=== PATIENT | female | born 1930 | race Caucasian/White ===

== ENCOUNTER 2018-05-26 08:34 | Inpatient (IN) | payer MEDICARE, OTHER ==
[~2018-05-26] VITALS: Ht 162.6 cm; Wt 67.6 kg
[~2018-05-26 08:34] MED LIST: ACET325T14 PO; AMLO5TAB4 PO; ATOR40TA78 PO; DILT120C9 PO; DOCU-131 PO; FLUC100T PO; OMEP-110 PO; TRAZ-136 PO
[2018-05-26] MEDS ORDERED: SODIUM CHLORIDE FLUSH 10ML SYR IVF ONE (09:00)
[2018-05-26] MEDS ORDERED: ALBUTEROL/IPRATROPIUM 2.5MG/0.5MG, 3 ML NPPB ONE (09:00)
[2018-05-26] MEDS ORDERED: SODIUM CHLORIDE 0.9% 1,000ML IVBOLUS ONE (09:00)
[2018-05-26] MEDS ORDERED: ALBUTEROL/IPRATROPIUM 2.5MG/0.5MG, 3 ML ONE (09:06)
[2018-05-26 09:45] LABS: RAPID INFLUENZA A Negative (Negative); RAPID INFLUENZA B Negative (Negative)
[2018-05-26 09:48] LABS: BASOPHILS # (AUTO) 0.02 x10^3/uL (0-0.1); BASOPHILS % (AUTO) 0 % (0-1); EOSINOPHILS # (AUTO) 0.09 x10^3/uL (0-0.4); EOSINOPHILS % (AUTO) 2 % (1-7); LYMPHOCYTES # (AUTO) 0.88 x10^3/uL (1-3.4); LYMPHOCYTES % (AUTO) 15 % (22-44); MD NO; MEAN CORPUSCULAR HEMOGLOBIN 33.3 pg (27.0-34.8); MEAN CORPUSCULAR HGB CONC 36.2 g/dL (32.4-35.8); MONOCYTES # (AUTO) 0.42 x10^3/uL (0.2-0.8); MONOCYTES % (AUTO) 7 % (2-9); NEUTROPHILS # (AUTO) 4.67 x10^3/uL (1.8-6.8); NEUTROPHILS % (AUTO) 77 % (42-75); PLATELET COUNT 143 x10^3/uL (130-400); RED BLOOD COUNT 3.23 x10^6/uL (3.82-5.3); RED CELL DISTRIBUTION WIDTH 20.1 % (9.6-15.2)
[2018-05-26] MEDS ORDERED: ASPIRIN (09:49)
[2018-05-26 09:55] LABS: ALBUMIN 3.1 g/dL (3.4-5.0); ANION GAP 8 mmol/L (5-15); CALCIUM 9.4 mg/dL (8.5-10.1); CHLORIDE 111 mmol/L (98-107)
[2018-05-26 10:01] LABS: ALANINE AMINOTRANSFERASE 29 U/L (12-78); ALKALINE PHOSPHATASE 199 U/L (45-117); BILIRUBIN,TOTAL 0.5 mg/dL (0.2-1.0); CREATININE 1.43 mg/dL (0.55-1.02); TROPONIN I 0.035 ng/mL (0.000-0.045)
[2018-05-26] MEDS ORDERED: FUROSEMIDE 20 MG/2 ML IV ONE ×2 (10:30→11:30)
[2018-05-26] MEDS ORDERED: ALBUTEROL SULFATE 2.5 MG/3 ML NPPB ONE (10:30)
[2018-05-26] MEDS ORDERED: FUROSEMIDE 20 MG/2 ML ONE ×2 (10:31→11:36)
[2018-05-26 10:40] LABS: MICROSCOPIC AUTO
[2018-05-26] MEDS ORDERED: ALBUTEROL SULFATE 2.5 MG/3 ML ONE (10:41)
[2018-05-26 10:42] LABS: CULTURE INDICATED? YES
[2018-05-26] MEDS ORDERED: SODIUM CHLORIDE FLUSH 10ML SYR IVF PRN (12:30)
[2018-05-26 12:57] VITALS: BP 143/84
[2018-05-26] MEDS ORDERED: MAGNESIUM HYDROXIDE 8%, 30ML UDC PO PRN (16:00)
[2018-05-26] MEDS ORDERED: ONDANSETRON 2MG/ML, 2ML IV PRN (16:00)
[2018-05-26] MEDS ORDERED: ZOLPIDEM 5MG TABLET PO PRN (16:00)
[2018-05-26] MEDS ORDERED: TRAZODONE 50MG TABLET PO PRN (16:00)
[2018-05-26] MEDS ORDERED: ENOXAPARIN 40 MG/0.4 ML SQ SCH ×2 (16:30→17:30)
[2018-05-26] MEDS ORDERED: ALBUTEROL/IPRATROPIUM 2.5MG/0.5MG, 3 ML NPPB PRN (17:00)
[2018-05-26] MEDS: CARVEDILOL 6.25 MG TABLET PO SCH (17:48)
[2018-05-26] MEDS: ALBUTEROL/IPRATROPIUM 2.5MG/0.5MG, 3 ML NPPB SCH (18:54)
[2018-05-26 19:00] VITALS: BP 111/66
[2018-05-26] MEDS: FUROSEMIDE 40 MG/4 ML IVPush SCH (20:39)
[2018-05-27 01:46] VITALS: BP 114/70
[2018-05-27] MEDS: CARVEDILOL 6.25 MG TABLET PO SCH (05:20)
[2018-05-27 05:42] LABS: ALANINE AMINOTRANSFERASE 25 U/L (12-78); ALBUMIN 2.8 g/dL (3.4-5.0); ANION GAP 8 mmol/L (5-15); CALCIUM 8.5 mg/dL (8.5-10.1); CHLORIDE 111 mmol/L (98-107); CREATININE 1.71 mg/dL (0.55-1.02)
[2018-05-27 05:47] LABS: ALKALINE PHOSPHATASE 154 U/L (45-117); BILIRUBIN,TOTAL 0.3 mg/dL (0.2-1.0); TOTAL PROTEIN 7.1 g/dL (6.4-8.2)
[2018-05-27 07:12] VITALS: BP 109/67
[2018-05-27] MEDS: ALBUTEROL/IPRATROPIUM 2.5MG/0.5MG, 3 ML NPPB SCH ×4 (08:05→20:10)
[2018-05-27] MEDS: SPIRONOLACTONE 25 MG TABLET PO SCH (08:52)
[2018-05-27] MEDS: FUROSEMIDE 40 MG/4 ML IVPush SCH (08:52)
[2018-05-27] MEDS: LOSARTAN 50MG TABLET PO SCH (08:53)
[2018-05-27] MEDS: DOCUSATE 100 MG CAPSULE PO SCH (08:53)
[2018-05-27 12:29] VITALS: BP 114/67
[2018-05-27 17:00] VITALS: BP 107/67
[2018-05-27] MEDS: ENOXAPARIN 30 MG/0.3 ML SQ SCH (17:06)
[2018-05-27] MEDS: CARVEDILOL 12.5 MG TABLET PO SCH (17:07)
[2018-05-27 19:00] VITALS: BP 96/58
[2018-05-28] VITALS (7 sets, daily range): BP systolic 95–123; BP diastolic 57–78
[2018-05-28] MEDS: CARVEDILOL 12.5 MG TABLET PO SCH ×2 (05:17→17:29)
[2018-05-28 05:33] LABS: ALBUMIN 2.5 g/dL (3.4-5.0); ANION GAP 8 mmol/L (5-15); CALCIUM 8.4 mg/dL (8.5-10.1); CHLORIDE 109 mmol/L (98-107); CREATININE 1.91 mg/dL (0.55-1.02)
[2018-05-28] MEDS: ALBUTEROL/IPRATROPIUM 2.5MG/0.5MG, 3 ML NPPB SCH ×4 (07:20→19:11)
[2018-05-28] MEDS: DOCUSATE 100 MG CAPSULE PO SCH (09:14)
[2018-05-28] MEDS: SPIRONOLACTONE 25 MG TABLET PO SCH (09:15)
[2018-05-28] MEDS: LOSARTAN 50MG TABLET PO SCH (09:15)
[2018-05-28] MEDS: FUROSEMIDE 20 MG TABLET PO SCH (09:15)
[2018-05-28] MEDS: CIPROFLOXACIN 250 MG TABLET PO SCH ×2 (16:17→21:38)
[2018-05-28] MEDS: ENOXAPARIN 30 MG/0.3 ML SQ SCH (17:29)
[2018-05-28] MEDS ORDERED: CIPROFLOXACIN 250 MG TABLET PO SCH (21:00)
[2018-05-29 02:00] VITALS: BP 114/71
[2018-05-29 05:41] LABS: CHLORIDE 107 mmol/L (98-107)
[2018-05-29 05:51] LABS: ANION GAP 7 mmol/L (5-15); CALCIUM 8.8 mg/dL (8.5-10.1); CREATININE 1.79 mg/dL (0.55-1.02)
[2018-05-29] MEDS: CARVEDILOL 12.5 MG TABLET PO SCH ×2 (06:21→18:02)
[2018-05-29] MEDS: ALBUTEROL/IPRATROPIUM 2.5MG/0.5MG, 3 ML NPPB SCH ×4 (07:37→19:53)
[2018-05-29 08:56] VITALS: BP 88/53
[2018-05-29] MEDS: LOSARTAN 25MG TABLET PO SCH (09:00)
[2018-05-29] MEDS: DOCUSATE 100 MG CAPSULE PO SCH (09:18)
[2018-05-29] MEDS: FUROSEMIDE 20 MG TABLET PO SCH (09:18)
[2018-05-29] MEDS: SPIRONOLACTONE 25 MG TABLET PO SCH (09:18)
[2018-05-29] MEDS: CIPROFLOXACIN 250 MG TABLET PO SCH ×2 (09:18→21:16)
[2018-05-29 13:40] VITALS: BP 100/62
[2018-05-29 17:42] VITALS: BP 97/61
[2018-05-29] MEDS: ENOXAPARIN 30 MG/0.3 ML SQ SCH (18:03)
[2018-05-29 19:26] VITALS: BP 103/60
[2018-05-30 01:40] VITALS: BP 107/63
[2018-05-30] MEDS: CARVEDILOL 12.5 MG TABLET PO SCH ×2 (05:48→17:26)
[2018-05-30 07:12] VITALS: BP 113/69
[2018-05-30] MEDS: CIPROFLOXACIN 250 MG TABLET PO SCH ×2 (09:42→21:37)
[2018-05-30] MEDS: DOCUSATE 100 MG CAPSULE PO SCH (09:42)
[2018-05-30] MEDS: SPIRONOLACTONE 25 MG TABLET PO SCH (09:42)
[2018-05-30] MEDS: LOSARTAN 25MG TABLET PO SCH (09:42)
[2018-05-30] MEDS: HYDROCHLOROTHIAZIDE 25 MG TABLET PO SCH (09:42)
[2018-05-30 14:21] VITALS: BP 105/63
[2018-05-30] MEDS: ENOXAPARIN 30 MG/0.3 ML SQ SCH (17:26)
[2018-05-30 19:01] VITALS: BP 97/65
[2018-05-31 02:00] VITALS: BP 114/68
[2018-05-31] MEDS: CARVEDILOL 12.5 MG TABLET PO SCH (06:12)
[2018-05-31 08:27] VITALS: BP 92/59
[2018-05-31] MEDS: DOCUSATE 100 MG CAPSULE PO SCH (09:00)
[2018-05-31] MEDS: LOSARTAN 25MG TABLET PO SCH (09:10)
[2018-05-31] MEDS: SPIRONOLACTONE 25 MG TABLET PO SCH (09:10)
[2018-05-31] MEDS: HYDROCHLOROTHIAZIDE 25 MG TABLET PO SCH (09:11)
[2018-05-31] MEDS: CIPROFLOXACIN 250 MG TABLET PO SCH (09:11)
[2018-05-31] MEDS ORDERED: HYDR25TA6 PO (10:15)
[2018-05-31] MEDS ORDERED: CARV12.543 PO (10:15)
[2018-05-31] MEDS ORDERED: CIPR250T27 PO (10:15)
[2018-06-01] MEDS ORDERED: HYDROCHLOROTHIAZIDE 25 MG TABLET PO SCH (09:00)
== END 2018-05-31 11:25 | disposition home or self-care (01) | DRG 291 ==
LOC: ED 09:13 → EDIP 11:37 → 4EST 12:37 → 4WST 05-28 01:10
PROVIDERS: ADMIT Internal Medicine; ATTEND Internal Medicine
DX: I13.0 Hypertensive heart and chronic kidney disease with heart failure and stage 1 through stage 4 chronic kidney disease, or unspecified chronic kidney disease (principal); I50.23 Acute on chronic systolic (congestive) heart failure; J44.1 Chronic obstructive pulmonary disease with (acute) exacerbation; N18.4 Chronic kidney disease, stage 4 (severe); I48.92 Unspecified atrial flutter; N39.0 Urinary tract infection, site not specified; I48.0 Paroxysmal atrial fibrillation; F03.90 Unspecified dementia, unspecified severity, without behavioral disturbance, psychotic disturbance, mood disturbance, and anxiety; I08.0 Rheumatic disorders of both mitral and aortic valves; I48.2 Chronic atrial fibrillation; B96.5 Pseudomonas (aeruginosa) (mallei) (pseudomallei) as the cause of diseases classified elsewhere; Z85.528 Personal history of other malignant neoplasm of kidney; Z86.73 Personal history of transient ischemic attack (TIA), and cerebral infarction without residual deficits; Z90.5 Acquired absence of kidney; Z87.891 Personal history of nicotine dependence; Z95.0 Presence of cardiac pacemaker; Z99.81 Dependence on supplemental oxygen; Z79.899 Other long term (current) drug therapy; I27.29 Other secondary pulmonary hypertension
CPT/HCPCS: 36415; 71045; 80048; 80053; 80069; 81001; 83605; 83880; 84484; 85025; 87040; 87077; 87086; 87186; 87400; 93005; 93306; 94640; 96361; 96374; 96376; 99285; G0378; J1650; J1940; J7613; J7620; J7030; J7512

== ENCOUNTER 2018-05-31 16:46 | Emergency (ER) | payer MEDICARE, OTHER ==
[~2018-05-31] VITALS: Ht 162.6 cm; Wt 48.0 kg
[~2018-05-31 16:46] MED LIST changes: +ASPIRIN; +CARV12.543 PO; +CIPR250T27 PO; +HYDR25TA6 PO
[2018-05-31 17:52] LABS: BASOPHILS % (AUTO) 0 % (0-1); EOSINOPHILS # (AUTO) 0.18 x10^3/uL (0-0.4); EOSINOPHILS % (AUTO) 3 % (1-7); LYMPHOCYTES # (AUTO) 0.44 x10^3/uL (1-3.4); LYMPHOCYTES % (AUTO) 7 % (22-44); MEAN CORPUSCULAR HEMOGLOBIN 26.5 pg (27.0-34.8); MEAN CORPUSCULAR HGB CONC 32.5 g/dL (32.4-35.8); MEAN CORPUSCULAR VOLUME 81.7 fL (80-100); MEAN PLATELET VOLUME 9.3 fL (7.4-10.4); MONOCYTES # (AUTO) 0.64 x10^3/uL (0.2-0.8); MONOCYTES % (AUTO) 10 % (2-9); NEUTROPHILS # (AUTO) 5.31 x10^3/uL (1.8-6.8); NEUTROPHILS % (AUTO) 81 % (42-75); PLATELET COUNT 119 x10^3/uL (130-400); RED BLOOD COUNT 3.74 x10^6/uL (3.82-5.3); RED CELL DISTRIBUTION WIDTH 19.5 % (9.6-15.2)
[2018-05-31 17:57] LABS: ALBUMIN 2.6 g/dL (3.4-5.0); ANION GAP 6 mmol/L (5-15); CALCIUM 8.1 mg/dL (8.5-10.1); CHLORIDE 104 mmol/L (98-107)
[2018-05-31 18:02] LABS: ALANINE AMINOTRANSFERASE 23 U/L (12-78); ALKALINE PHOSPHATASE 173 U/L (45-117); BILIRUBIN,TOTAL 0.3 mg/dL (0.2-1.0); CREATININE 1.77 mg/dL (0.55-1.02); TROPONIN I 0.029 ng/mL (0.000-0.045)
[2018-05-31 18:21] LABS: MD SCAN
[2018-05-31 18:58] LABS: MICROSCOPIC INDICATED
[2018-05-31] MEDS ORDERED: FUROSEMIDE 40 MG/4 ML IV ONE (19:30)
[2018-05-31 19:32] LABS: CULTURE INDICATED? NO
[2018-05-31] MEDS ORDERED: FUROSEMIDE 40 MG/4 ML ONE (19:52)
[2018-05-31 22:43] VITALS: BP 121/70
== END 2018-05-31 22:57 | disposition home or self-care (01) ==
LOC: ED 19:33
DX: R53.1 Weakness (principal); R09.02 Hypoxemia; J44.9 Chronic obstructive pulmonary disease, unspecified; I50.9 Heart failure, unspecified
CPT/HCPCS: 36415; 71045; 80053; 81001; 83880; 84484; 85025; 93005; 96374; 99285; J1940

== ENCOUNTER 2018-07-31 05:56 | Observation (INO) | payer MEDICARE, OTHER ==
[~2018-07-31] VITALS: Ht 165.1 cm; Wt 49.8 kg
[~2018-07-31 05:56] MED LIST changes: -TRAZ-136 PO; +TRAZ50TA66 PO
[2018-07-31] MEDS ORDERED: OXYcodone/APAP 5/325MG TABLET ONE (06:51)
[2018-07-31] MEDS ORDERED: ONDANSETRON ODT 4 MG ONE (06:51)
[2018-07-31] MEDS ORDERED: OXYcodone/APAP 5/325MG TABLET PO ONE (07:00)
[2018-07-31] MEDS ORDERED: ONDANSETRON ODT 4 MG PO ONE (07:00)
[2018-07-31 09:17] LABS: MEAN CORPUSCULAR HEMOGLOBIN 25.9 pg (27.0-34.8); MEAN CORPUSCULAR HGB CONC 31.7 g/dL (32.4-35.8); MEAN CORPUSCULAR VOLUME 81.7 fL (80-100); MEAN PLATELET VOLUME 9.1 fL (7.4-10.4); PLATELET COUNT 119 x10^3/uL (130-400); RED BLOOD COUNT 3.84 x10^6/uL (3.82-5.3); RED CELL DISTRIBUTION WIDTH 23.5 % (9.6-15.2)
[2018-07-31 09:23] LABS: ALBUMIN 3.2 g/dL (3.4-5.0); ANION GAP 8 mmol/L (5-15); CALCIUM 8.7 mg/dL (8.5-10.1); CHLORIDE 111 mmol/L (98-107); CREATININE 1.91 mg/dL (0.55-1.02)
[2018-07-31 09:34] LABS: BASOPHILS # (AUTO) 0.02 x10^3/uL (0-0.1); BASOPHILS % (AUTO) 0 % (0-1); EOSINOPHILS # (AUTO) 0.07 x10^3/uL (0-0.4); EOSINOPHILS % (AUTO) 1 % (1-7); LYMPHOCYTES # (AUTO) 0.66 x10^3/uL (1-3.4); LYMPHOCYTES % (AUTO) 11 % (22-44); MD SCAN; MONOCYTES # (AUTO) 0.43 x10^3/uL (0.2-0.8); MONOCYTES % (AUTO) 7 % (2-9); NEUTROPHILS # (AUTO) 4.81 x10^3/uL (1.8-6.8); NEUTROPHILS % (AUTO) 80 % (42-75)
[2018-07-31] MEDS ORDERED: SODIUM CHLORIDE FLUSH 10ML SYR IVF PRN (10:00)
[2018-07-31] MEDS ORDERED: ONDANSETRON 2MG/ML, 2ML IVPush PRN (10:00)
[2018-07-31] MEDS ORDERED: MORPHINE SULFATE 4 MG/ML, 1ML IVPush PRN (10:00)
[2018-07-31] MEDS ORDERED: SODIUM CHLORIDE 0.9% 1,000 ML IV ONE (10:00)
[2018-07-31 11:21] VITALS: BP 92/60
[2018-07-31] MEDS ORDERED: DOCUSATE 100 MG CAPSULE PO PRN (13:00)
[2018-07-31] MEDS ORDERED: ACETAMINOPHEN 325 MG TABLET PO PRN (13:00)
[2018-07-31 13:16] VITALS: BP 93/59
[2018-07-31 18:33] VITALS: BP 79/60
[2018-07-31 19:20] LABS: CULTURE INDICATED? YES; MICROSCOPIC AUTO
[2018-07-31 19:55] VITALS: BP 102/63
[2018-07-31] MEDS: CARVEDILOL 12.5 MG TABLET PO SCH (21:55)
[2018-08-01 00:26] VITALS: BP 103/63
[2018-08-01] MEDS: CARVEDILOL 12.5 MG TABLET PO SCH (06:33)
[2018-08-01] MEDS ORDERED: SULFAMETH./TRIMETHOPRIM DS 800MG/160MG TABLET PO SCH (09:00)
[2018-08-01 09:33] VITALS: BP 92/60
[2018-08-01] MEDS ORDERED: SULF-169 PO (12:56)
== END 2018-08-01 14:20 | disposition home or self-care (01) ==
LOC: ED 09:38 → INTOOBSV 10:00 → EDIP 10:00 → 3NE 11:46 → DCLOUNGE 08-01 14:14
PROVIDERS: ADMIT Internal Medicine; ATTEND Internal Medicine
DX: S32.010A Wedge compression fracture of first lumbar vertebra, initial encounter for closed fracture (principal); S22.060A Wedge compression fracture of T7-T8 vertebra, initial encounter for closed fracture; S22.070A Wedge compression fracture of T9-T10 vertebra, initial encounter for closed fracture; S32.020A Wedge compression fracture of second lumbar vertebra, initial encounter for closed fracture; S32.050A Wedge compression fracture of fifth lumbar vertebra, initial encounter for closed fracture; I48.0 Paroxysmal atrial fibrillation; I13.0 Hypertensive heart and chronic kidney disease with heart failure and stage 1 through stage 4 chronic kidney disease, or unspecified chronic kidney disease; E78.5 Hyperlipidemia, unspecified; H91.90 Unspecified hearing loss, unspecified ear; I50.9 Heart failure, unspecified; N39.0 Urinary tract infection, site not specified; J44.9 Chronic obstructive pulmonary disease, unspecified; N18.4 Chronic kidney disease, stage 4 (severe); W07.XXXA Fall from chair, initial encounter; X58.XXXA Exposure to other specified factors, initial encounter; Y93.89 Activity, other specified; Y92.89 Other specified places as the place of occurrence of the external cause; Y99.8 Other external cause status; Z82.3 Family history of stroke; Z82.49 Family history of ischemic heart disease and other diseases of the circulatory system; Z86.73 Personal history of transient ischemic attack (TIA), and cerebral infarction without residual deficits; Z95.0 Presence of cardiac pacemaker
CPT/HCPCS: 36415; 72110; 72128; 72131; 72220; 80048; 81001; 82040; 85025; 87077; 87086; 87186; 99284; G0378; Q0162

== ENCOUNTER 2018-08-01 14:36 | Inpatient (IN) | payer MEDICARE, OTHER ==
[~2018-08-01] VITALS: Ht 162.6 cm; Wt 48.8 kg
[~2018-08-01 14:36] MED LIST changes: +SULF-169 PO
[2018-08-01] MEDS ORDERED: NALOXONE 0.4 MG/ML, 1ML ONE (14:41)
[2018-08-01] MEDS ORDERED: ONDANSETRON 2MG/ML, 2ML ONE (14:47)
[2018-08-01 15:22] LABS: ALBUMIN 3.2 g/dL (3.4-5.0); ANION GAP 10 mmol/L (5-15); CALCIUM 8.8 mg/dL (8.5-10.1); CHLORIDE 106 mmol/L (98-107)
[2018-08-01] MEDS ORDERED: CEFTRIAXONE PMX 1GM/50ML 50 ML ONE (15:23)
[2018-08-01 15:25] LABS: MEAN CORPUSCULAR HEMOGLOBIN 27.5 pg (27.0-34.8); MEAN CORPUSCULAR HGB CONC 32.5 g/dL (32.4-35.8); MEAN CORPUSCULAR VOLUME 84.8 fL (80-100); MEAN PLATELET VOLUME 9.4 fL (7.4-10.4); PLATELET COUNT 122 x10^3/uL (130-400); RED BLOOD COUNT 4.15 x10^6/uL (3.82-5.3); RED CELL DISTRIBUTION WIDTH 23.9 % (9.6-15.2)
[2018-08-01 15:28] LABS: ALANINE AMINOTRANSFERASE 30 U/L (12-78); ALKALINE PHOSPHATASE 143 U/L (45-117); BILIRUBIN,TOTAL 0.4 mg/dL (0.2-1.0); CREATININE 2.39 mg/dL (0.55-1.02); TOTAL PROTEIN 7.4 g/dL (6.4-8.2); TROPONIN I 0.035 ng/mL (0.000-0.045)
[2018-08-01] MEDS ORDERED: SODIUM CHLORIDE 0.9%, 500ML IVBOLUS ONE (15:30)
[2018-08-01] MEDS ORDERED: CEFTRIAXONE PMX 1GM/50ML 50 ML IV ONE (15:30)
[2018-08-01] MEDS ORDERED: NALOXONE 0.4 MG/ML, 1ML IVPush ONE (15:30)
[2018-08-01] MEDS ORDERED: ONDANSETRON 2MG/ML, 2ML IVPush ONE (15:30)
[2018-08-01 15:47] LABS: INTERNATIONAL NORMALIZED RATIO 1.02 (0.93-1.1); PROTHROMBIN TIME 10.8 Seconds (9.6-11.5)
[2018-08-01 16:02] LABS: BASOPHILS % (AUTO) 0 % (0-1); EOSINOPHILS # (AUTO) 0.05 x10^3/uL (0-0.4); EOSINOPHILS % (AUTO) 1 % (1-7); LYMPHOCYTES # (AUTO) 0.21 x10^3/uL (1-3.4); LYMPHOCYTES % (AUTO) 5 % (22-44); MD SCAN; MONOCYTES # (AUTO) 0.01 x10^3/uL (0.2-0.8); MONOCYTES % (AUTO) 0 % (2-9); NEUTROPHILS # (AUTO) 4.47 x10^3/uL (1.8-6.8); NEUTROPHILS % (AUTO) 94 % (42-75)
[2018-08-01] MEDS ORDERED: ACETAMINOPHEN 325 MG TABLET PO PRN (17:00)
[2018-08-01 18:18] VITALS: BP 99/65
[2018-08-01] MEDS: D5%-0.45% NACL 1,000 ML IV SCH (18:37)
[2018-08-01 19:35] VITALS: BP 96/62
[2018-08-01] MEDS: SULFAMETH./TRIMETHOPRIM DS 800MG/160MG TABLET PO SCH (22:49)
[2018-08-02 01:54] VITALS: BP 106/70
[2018-08-02] MEDS: D5%-0.45% NACL 1,000 ML IV SCH ×2 (05:10→19:28)
[2018-08-02] MEDS: SULFAMETH./TRIMETHOPRIM DS 800MG/160MG TABLET PO SCH ×2 (08:19→21:12)
[2018-08-02 08:35] VITALS: BP 106/72
[2018-08-02 15:49] VITALS: BP 103/70
[2018-08-02 20:58] VITALS: BP 91/57
[2018-08-03 00:03] VITALS: BP 91/55
[2018-08-03 07:56] VITALS: BP 97/59
[2018-08-03] MEDS: D5%-0.45% NACL 1,000 ML IV SCH ×2 (09:10→22:07)
[2018-08-03] MEDS: SULFAMETH./TRIMETHOPRIM DS 800MG/160MG TABLET PO SCH ×2 (09:10→20:26)
[2018-08-03 13:17] VITALS: BP 98/60
[2018-08-03 19:18] VITALS: BP 100/64
[2018-08-04 02:02] VITALS: BP 97/66
[2018-08-04 07:29] VITALS: BP 105/67
[2018-08-04] MEDS: SULFAMETH./TRIMETHOPRIM DS 800MG/160MG TABLET PO SCH ×2 (09:18→22:04)
[2018-08-04] MEDS: D5%-0.45% NACL 1,000 ML IV SCH (11:45)
[2018-08-04 12:57] VITALS: BP 103/64
[2018-08-04 19:50] VITALS: BP 101/66
[2018-08-05] MEDS: D5%-0.45% NACL 1,000 ML IV SCH (00:36)
[2018-08-05 01:59] VITALS: BP 94/54
[2018-08-05 06:55] VITALS: BP 119/77
[2018-08-05] MEDS: SULFAMETH./TRIMETHOPRIM DS 800MG/160MG TABLET PO SCH (09:19)
== END 2018-08-05 11:47 | disposition hospice, home (50) | DRG 189 ==
LOC: ED 16:27 → EDIP 16:28 → ED 17:45 → 3NE 18:01
PROVIDERS: ADMIT Internal Medicine; ATTEND Internal Medicine
DX: J96.01 Acute respiratory failure with hypoxia (principal); N39.0 Urinary tract infection, site not specified; E87.2 Acidosis; I13.0 Hypertensive heart and chronic kidney disease with heart failure and stage 1 through stage 4 chronic kidney disease, or unspecified chronic kidney disease; M48.50XA Collapsed vertebra, not elsewhere classified, site unspecified, initial encounter for fracture; N18.4 Chronic kidney disease, stage 4 (severe); E78.5 Hyperlipidemia, unspecified; E87.5 Hyperkalemia; H91.90 Unspecified hearing loss, unspecified ear; I48.2 Chronic atrial fibrillation; I48.0 Paroxysmal atrial fibrillation; M54.9 Dorsalgia, unspecified; Z51.5 Encounter for palliative care; I50.9 Heart failure, unspecified; R62.7 Adult failure to thrive; D69.6 Thrombocytopenia, unspecified; J44.9 Chronic obstructive pulmonary disease, unspecified; Z66 Do not resuscitate; Z82.3 Family history of stroke; Z82.49 Family history of ischemic heart disease and other diseases of the circulatory system; Z85.528 Personal history of other malignant neoplasm of kidney; Z86.73 Personal history of transient ischemic attack (TIA), and cerebral infarction without residual deficits; Z90.5 Acquired absence of kidney; Z87.891 Personal history of nicotine dependence; Z95.0 Presence of cardiac pacemaker; Z95.5 Presence of coronary angioplasty implant and graft; Z90.13 Acquired absence of bilateral breasts and nipples
CPT/HCPCS: 36600; 71045; 78582; 80053; 82803; 83605; 83880; 84484; 85025; 85610; 87040; 93005; 96361; 96365; 96375; G0378; J0696; J2310; J2405; A9540; A9558; C9898; J7040